=== PATIENT | male | born 1985 | race Caucasian/White ===

== ENCOUNTER 2021-02-22 08:34 | Day surgery (SDC) | payer SELFPAY ==
[~2021-02-22] VITALS: Ht 175.3 cm; Wt 83.9 kg
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
[~2021-02-22 08:34] MED LIST: PERCOCET 7.5/321 TAB PO
[2021-02-22] MEDS ORDERED: BACTRIM DS TAB1 EAC1 PO (09:14)
[2021-02-22 09:15] VITALS: BP 176/107; Ht 175.3 cm; Wt 83.9 kg
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
--- NOTE | 2021-02-22 10:27 | NUR ---
1025 B/P 142/94 AFTER RECEIVING VALIUM. PT STATES HE FEELS LESS ANXIOUS.
--- NOTE | 2021-02-22 16:00 | NUR ---
DC TEACHING COMPLETE TO PT AND GF. DC'D PIV WITH CATHETER INTACT, GF ASSISTING PT TO GET DRESSED 1615 PT DC'D VIA WC BY BELLA SAVAGE, WITH ALL BELONGINGS AND DC PACKET TO POV WITH GF DRIVING.
== END 2021-02-22 16:15 | disposition home or self-care (01) ==
LOC: D.OPS 08:34
PROVIDERS: ATTEND Orthopaedic Surgery
DX: S61.331A Puncture wound without foreign body of left index finger with damage to nail, initial encounter (principal); W34.00XA Accidental discharge from unspecified firearms or gun, initial encounter; M79.645 Pain in left finger(s)